=== PATIENT | female | born 1950 | race Caucasian/White ===

== ENCOUNTER → 2018-11-15 10:13 | Outpatient (CLI) | payer MEDICARE, SELFPAY ==
--- NOTE | 2018-11-15 | DI.US.S_ITS ---
PROCEDURE: US ABDOMEN COMPLETE INDICATIONS: UNSPECIFIED ABDOMINAL PAIN TECHNIQUE: Real-time scanning was performed of the abdominal and retroperitoneal organs, with image documentation. COMPARISON: [facility], US, US PELVIC COMPLETE, 11/15/2018, 11:02. FINDINGS: Liver: The liver demonstrates normal size. The liver demonstrates generalized increased echogenicity. This decreases ultrasound sensitivity for detection of hepatic masses. Gallbladder: Absent. Within the gallbladder fossa, there is a fluid-filled structure seen, which is attributed to normal bowel. Biliary ducts: Intrahepatic bile ducts are non-dilated. Extrahepatic bile duct caliber measures 6 mm. Normal is 6-7 mm or less in diameter, or 10 mm or less post-cholecystectomy. Pancreas: Visualized portions of the pancreas are sonographically normal. Spleen: Spleen is normal in size and homogeneous in echotexture. Kidneys: Kidneys are normal in size and echotexture. Right kidney measures 9.5 cm long; left kidney measures 9.5 cm long. No hydronephrosis or nephrolithiasis. No solid masses. The renal cortex measures within normal limits for thickness. Aorta: Visualized aorta is normal in caliber at less than 3 cm. Iliacs: Proximal common iliac arteries are normal in caliber at less than 2.5 cm. IVC: Intrahepatic inferior vena cava is patent. Miscellaneous: No free abdominal fluid. IMPRESSION: Status post cholecystectomy. No biliary dilatation. The liver demonstrates increased echogenicity. This finding is nonspecific, yet it is most commonly attributed to fatty infiltration. Dictated by: Kyle King M.D. on 11/15/2018 at 11:55 Approved by: Kyle King M.D. on 11/15/2018 at 11:57
--- NOTE | 2018-11-15 | DI.US.S_ITS ---
PROCEDURE: US PELVIC COMPLETE INDICATIONS: UNSPECIFIED ABDOMINAL PAIN TECHNIQUE: Real-time scanning was performed of the pelvic organs, with image documentation. Additional endovaginal scanning was necessary due to incomplete visualization of the adnexal and endometrial structures by transabdominal scanning. COMPARISON: [facility], , US ABDOMEN COMPLETE, 11/15/2018, 10:46. FINDINGS: Transabdominal scanning: Limited scanning through the kidneys shows no hydronephrosis. No pathologic free abdominal or pelvic fluid. Endovaginal scanning: Uterus: Uterus is normal in size at 5.4 x 2.3 x 3.1 cm. The endometrium measures 2 mm in combined thickness. Ovaries: Neither ovary can be seen. No adnexal masses are seen. IMPRESSION: Normal postmenopausal pelvic ultrasound. Dictated by: Kyle King M.D. on 11/15/2018 at 11:57 Approved by: Kyle King M.D. on 11/15/2018 at 11:58
== END ==
PROVIDERS: PCP Family Medicine; Visit Provider Family Medicine
DX: R10.9 Unspecified abdominal pain (principal); Z90.49 Acquired absence of other specified parts of digestive tract
CPT/HCPCS: 76700; 76830; 76856

== ENCOUNTER → 2020-02-24 09:50 | Outpatient (CLI) | payer MEDICARE, SELFPAY ==
--- NOTE | 2020-02-24 | DI.RAD.S_ITS ---
PROCEDURE: XR LUMBAR SPINE 2-3V INDICATIONS: LOW BACK AND LEFT HIP PAIN TECHNIQUE: Three views of the lumbar spine were acquired. COMPARISON: None. FINDINGS: Bones: 5 [id number] vertebrae are present. There is 37? of convex left thoracolumbar spine scoliosis with left lateral L2 and L3 subluxation No vertebral body compression fractures. No suspicious bony lesions. Moderate L1-L2, L2-L3, L3-L4 and L4-L5 degenerative disc disease. Moderate to severe L5-S1 degenerate disc disease. Moderate L1-L2, L2-L3, L3-L4 and L4-L5 facet arthropathy. Severe L5-S1 facet arthropathy. Soft tissues: Overlying bowel gas pattern is normal. No suspicious soft tissue calcifications. IMPRESSION: 1. Multilevel degenerative disc disease. 2. Multilevel facet arthropathy. 3. Convex left thoracolumbar spine scoliosis. 4. No fracture. No acute osseous lesion. If symptoms and/or clinical suspicion for pathology persists, evaluation with MRI may be helpful for further assessment. Dictated by: Yola Perez MD, PhD on 02/24/2020 at 17:48 Approved by: Yola Perez MD, PhD on 02/24/2020 at 17:50
--- NOTE | 2020-02-24 | DI.RAD.S_ITS ---
PROCEDURE: XR HIP W PEL IF DONE LT 2V INDICATIONS: LOW BACK AND LEFT HIP PAIN TECHNIQUE: AP pelvis with lateral view(s) of the left hip(s). COMPARISON: None. FINDINGS: Bones: No fractures or dislocations. Pelvic ring appears intact. No suspicious bony lesions. Left hip osseous hypertrophy and mild joint space narrowing. Right hip osseous hypertrophy. Soft tissues: The visualized bowel gas pattern is normal. No suspicious soft tissue calcifications. IMPRESSION: Moderate right hip and mild left hip osteoarthritis. Dictated by: Yola Perez MD, PhD on 02/24/2020 at 17:50 Approved by: Yola Perez MD, PhD on 02/24/2020 at 17:51
== END ==
PROVIDERS: PCP Family Medicine; Referring Provider Family Medicine; Visit Provider Family Medicine
DX: M54.5 Low back pain (principal); M25.552 Pain in left hip; M16.0 Bilateral primary osteoarthritis of hip; M51.36 Other intervertebral disc degeneration, lumbar region; M51.37 Other intervertebral disc degeneration, lumbosacral region; M47.816 Spondylosis without myelopathy or radiculopathy, lumbar region; M47.817 Spondylosis without myelopathy or radiculopathy, lumbosacral region; M41.85 Other forms of scoliosis, thoracolumbar region
CPT/HCPCS: 72100; 73502

== ENCOUNTER → 2020-04-02 16:22 | Outpatient (CLI) | payer MEDICARE, SELFPAY ==
--- NOTE | 2020-04-02 | DI.MRI.S_ITS ---
PROCEDURE: MR LUMBAR SPINE WO CON INDICATIONS: Radiculopathy, lumbar region TECHNIQUE: Noncontrast sagittal T1 spin echo and T2 fast echo, sagittal STIR, axial T1 and T2 fast spin echo through the lumbar spine. In cases with scoliosis, additional coronal T2 fast spin echo may be performed. COMPARISON: None. FINDINGS: Image quality: Excellent. Alignment and Curvature: There is 46.6? left convex scoliosis centered at L2-3. No spondylolisthesis. Bone Marrow: Marrow is of normal overall signal. No acute vertebral body compression fractures. Spinal Cord: Conus medullaris terminates at the T12 level. Visualized cord demonstrates normal signal and size. Paraspinous Soft Tissues: No paravertebral masses. L1-L2: No canal stenosis. No neural foraminal stenosis. L2-L3: Mild to moderate disc desiccation and height loss. No canal stenosis. Moderate facet ligamentum flavum hypertrophy. Mild right foraminal stenosis. L3-L4: Moderate disc desiccation and height loss with vacuum disc phenomenon. Severe facet ligamentum flavum hypertrophy. Moderate canal stenosis. Severe right foraminal stenosis with flattening of the exiting nerve root. Moderate left neural foraminal narrowing. L4-L5: Moderate disc desiccation and height loss. Severe facet ligamentum flavum hypertrophy. No canal stenosis. Moderate left foraminal stenosis. No right neural foraminal narrowing. L5-S1: Moderate to severe disc desiccation and height loss. Broad-based disc bulge. Moderate facet ligamentum flavum hypertrophy. No canal stenosis. Mild bilateral foraminal narrowing. IMPRESSION: 1. Severe left convex scoliosis. 2. Severe right foraminal stenosis with flattening of the exiting nerve root at L3-4. 3. Moderate left neural foraminal narrowing at L3-4 and L4-5. 4. Moderate canal stenosis at L3-4. Dictated by: Rosa Jain M.D. on 04/05/2020 at 10:28 Approved by: Rosa Jain M.D. on 04/05/2020 at 10:33
== END ==
PROVIDERS: PCP Family Medicine; Referring Provider Orthopaedic Surgery Orthopaedic Surgery of the Spine; Visit Provider Orthopaedic Surgery Orthopaedic Surgery of the Spine
DX: M54.16 Radiculopathy, lumbar region (principal); M41.86 Other forms of scoliosis, lumbar region; M48.061 Spinal stenosis, lumbar region without neurogenic claudication
CPT/HCPCS: 72148